=== PATIENT | male | born 1945 | race Caucasian/White ===

== ENCOUNTER 2016-11-10 08:08 | Emergency (ER) | payer MEDICARE, OTHER ==
[2016-11-10 08:14] VITALS: BP 144/70; PULSE 67; RESP 18; TEMP 97.1
[2016-11-10] MEDS ORDERED: KETOROLAC 60 MG/2 ML VIAL IM STA (08:20)
[2016-11-10] MEDS ORDERED: methylPREDNISolone SOD SUCCI 125 MG/2 ML VIAL IM STA (08:20)
[2016-11-10] MEDS ORDERED: ORPHENADRINE 30 MG/ML 2 ML VIAL IM STA (08:20)
--- NOTE | 2016-11-10 08:31 | ED ---
General Adult HPI - General Chief complaint: Extremity Problem,Nontraumatic Stated complaint: LEFT LEG PAIN FROM HIP DOWN Time Seen by Provider: 11/10/16 08:16 Source: patient, RN notes reviewed Mode of arrival: ambulatory Limitations: no limitations - History of Present Illness Initial comments: 71-year-old male presents emergency Department chief complaint of left-sided hip pain. Patient states a few days ago he fell back onto the right hip. Patient states ever since the fall he's had this pain to the left hip that radiates down the left leg with a burning type quality. Patient states it painful to walk. Patient states he's had no loss of bowel or bladder function. Patient denies any history of pain like this before. Patient states that it started after the fall. Patient states that it doesn't hurt to touch but just hurts. Patient states her movements will make it worse. Patient states he did not hit his head with the fall was a simple. It bothers no chest pain no tenderness or dizziness prior to the fall. Patient states she was concerned due to his pain. That he should be seenPatient denies any recent fever, chills , shortness of breath, chest pain, abdominal pain, nausea vomiting, numbness or tingling, dysuria or hematuria, constipation or diarrhea, headaches or visual changes, or any other current symptoms. - Related Data Home Medications Medication Instructions Recorded Confirmed Acetaminophen [Tylenol Extra 500 mg PO TID 11/10/16 11/10/16 Strength] Alendronate Sodium [Fosamax] 40 mg PO SA 11/10/16 11/10/16 Clopidogrel Bisulfate [Plavix] 75 mg PO DAILY 11/10/16 11/10/16 Levothyroxine Sodium [Synthroid] 75 mcg PO DAILY 11/10/16 11/10/16 Metoprolol Succinate [Toprol XL] 25 mg PO DAILY 11/10/16 11/10/16 Multivitamins, Thera [Multivitamin 1 tab PO DAILY 11/10/16 11/10/16 (formulary)] glipiZIDE [Glucotrol] 5 mg PO AC-BID 11/10/16 11/10/16 metFORMIN HCL [Glucophage] 500 mg PO BID 11/10/16 11/10/16 Previous Rx's Medication Instructions Recorded predniSONE 50 mg PO DAILY #5 tab 11/10/16 Allergies Allergy/AdvReac Type Severity Reaction Status Date / Time aspirin Allergy Unknown Verified 11/10/16 08:49 Penicillins Allergy Unknown Verified 11/10/16 08:49 vancomycin Allergy Rapid Verified 11/10/16 08:49 Heart Rate Review of Systems ROS Statement: Those systems with pertinent positive or pertinent negative responses have been documented in the HPI. ROS Other: All systems not noted in ROS Statement are negative. Past Medical History Past Medical History: Diabetes Mellitus, Hyperlipidemia, Thyroid Disorder Additional Past Medical History / Comment(s): osteoporosis diverticulitis History of Any Multi-Drug Resistant Organisms: None Reported Additional Past Surgical History / Comment(s): bowel surg schrapnal removal cataracts Past Psychological History: No Psychological Hx Reported Smoking Status: Never smoker Past Alcohol Use History: None Reported Past Drug Use History: None Reported General Exam Limitations: no limitations General appearance: alert, in no apparent distress ENT exam: Present: normal exam, mucous membranes moist Neck exam: Present: normal inspection. Absent: tenderness, meningismus, lymphadenopathy Respiratory exam: Present: normal lung sounds bilaterally. Absent: respiratory distress, wheezes, rales, rhonchi, stridor Cardiovascular Exam: Present: regular rate, normal rhythm, normal heart sounds. Absent: systolic murmur, diastolic murmur, rubs, gallop, clicks Extremities exam: Present: normal inspection, full ROM, normal capillary refill. Absent: tenderness, pedal edema, joint swelling, calf tenderness Back exam: Present: normal inspection, full ROM, other (Positive straight leg raise on the left ). Absent: tenderness, CVA tenderness (R), CVA tenderness (L) , muscle spasm, paraspinal tenderness, vertebral tenderness, rash noted Neurological exam: Present: alert, oriented X3 Psychiatric exam: Present: normal affect, normal mood Skin exam: Present: warm, dry, intact, normal color. Absent: rash Course Vital Signs 11/10/16 08:09 Temperature 97.1 F L Pulse Rate 67 Respiratory 18 Rate Blood Pressure 144/70 O2 Sat by Pulse 98 Oximetry Medical Decision Making - Medical Decision Making 71-year-old male presents emergency Department with chief complaint of burning pain down the left leg. This time x-ray results were reviewed and discussed with the patient. This time we discussed patient's symptoms are consistent with sciatica. We did discuss was struck on steroids. We did discuss that this can increase his glucose did discuss close follow-up this. We did discuss close follow-up with his doctor return parameters. Patient stated he understood all questions have been answered. He will be discharged home. - Radiology Data Radiology results: report reviewed, image reviewed Disposition Clinical Impression: Left sided sciatica Disposition: HOME SELF-CARE Condition: Stable Instructions: Sciatica (ED) Additional Instructions: Please use medication as discussed. Please follow up with family doctor if symptoms have not improved over the next two days. Please return to the emergency room if your symptoms increase or worsen or for any other concerns. Prescriptions: predniSONE 50 mg PO DAILY #5 tab Referrals: Davy Ahumada MD [Primary Care Provider] - 1-2 days Time of Disposition: 09:08
--- NOTE | 2016-11-10 08:43 | XR ---
EXAMINATION TYPE: XR lumbar spine 2 or 3V DATE OF EXAM: 11/10/2016 COMPARISON: NONE HISTORY: Pain low back and left hip TECHNIQUE: Three-view lumbar spine FINDINGS: There 5 lumbar-type vertebral bodies. The pedicles are intact. Posterior disc space narrowi ng is present to the lumbar spine. Vertebral body heights are preserved. Postsurgical changes are wit hin the pelvis. Calcific density overlies the right flank. IMPRESSION: 1. Degenerative disc changes lumbar spine
--- NOTE | 2016-11-10 08:44 | XR ---
EXAMINATION TYPE: XR Hip LT and AP Pelvis DATE OF EXAM: 11/10/2016 COMPARISON: NONE HISTORY: Left hip pain low back pain TECHNIQUE: AP pelvis and two-view left hip FINDINGS: Femoral heads articulate with the acetabulum. Symphysis pubis and sacroiliac joints are nor mal. Normal bowel gas is present. Postsurgical changes are within the pelvis. Close bowel surgical ch anges are evident. No acute fracture of the left hip is evident. IMPRESSION: 1. Normal left hip
== END 2016-11-10 09:08 | disposition home or self-care (01) ==
LOC: EC 08:08
DX: M54.32 Sciatica, left side (principal); E11.9 Type 2 diabetes mellitus without complications; M81.0 Age-related osteoporosis without current pathological fracture; E07.9 Disorder of thyroid, unspecified; Z79.02 Long term (current) use of antithrombotics/antiplatelets; Z79.84 Long term (current) use of oral hypoglycemic drugs; Z79.899 Other long term (current) drug therapy; Z88.0 Allergy status to penicillin; Z88.1 Allergy status to other antibiotic agents; Z88.6 Allergy status to analgesic agent
CPT/HCPCS: 72100; 73502; 99283; 96372 ×3; J2360; J2930; J1885

== ENCOUNTER 2018-03-15 18:41 | Emergency (ER) | payer MEDICARE, OTHER ==
[2018-03-15 18:49] VITALS: RESP 18
[2018-03-15] MEDS ORDERED: KETOROLAC 30 MG/ML 1 ML VIAL IM STA (19:41)
[2018-03-15] MEDS ORDERED: MORPHINE SULFATE 4 MG/ML SYRINGE IM STA (20:17)
--- NOTE | 2018-03-15 20:36 | CT ---
EXAMINATION TYPE: CT lumbar spine wo con DATE OF EXAM: 03/15/2018 8:14 PM COMPARISON: HISTORY: low back pain, no injury CT DLP: 686.1 mGycm Automated exposure control for dose reduction was used. Unenhanced CT of the lumbar spine was performed. Bone and soft tissue window settings are submitted as well as coronal and sagittal reconstructions. Lumbar vertebra have fairly normal spacing and alignment. There is no compression fracture. Posterior elements are intact. I see no evidence of bony spinal stenosis. There is no lumbar paraspinal mass. I see no focal bone destruction. Sacroiliac joints appear intact. IMPRESSION: No significant abnormality of the lumbar spine. No fracture. No spinal stenosis.
--- NOTE | 2018-03-15 20:42 | CT ---
EXAMINATION TYPE: CT hip LT wo con DATE OF EXAM: 03/15/2018 COMPARISON: None HISTORY: left hip pain, no injury CT DLP: 387.6 mGycm Automated exposure control for dose reduction was used. FINDINGS: Multiple axial sections were obtained from the mid ileum to the mid shaft of the femur with no contra st. Hip joint spaces fairly normal. There is no evidence of femoral fracture. Acetabulum appears intact. Sacroiliac joint appears intact. I see no focal bone destruction. There is soft tissue calcification posterior to the proximal shaft of the femur consistent with old injury. There is no evidence of a so ft tissue mass. IMPRESSION: NEGATIVE CT SCAN OF THE LEFT HIP. NO EVIDENCE OF ANY SIGNIFICANT ARTHRITIC DISEASE. NO FRACTURE.
--- NOTE | 2018-03-15 21:13 | ED ---
General Adult HPI - General Source: patient, RN notes reviewed Mode of arrival: ambulatory Limitations: no limitations <Truong Pena P - Last Filed: 03/15/18 21:40> <Lizz Ventura P - Last Filed: 03/16/18 04:43> - General Chief complaint: Extremity Injury, Lower Stated complaint: sciatica nerve pain Time Seen by Provider: 03/15/18 18:54 - History of Present Illness Initial comments: 72-year-old male presents to the emergency department for a chief complaint of left buttock pain 2 days. Patient states this feels that his previous sciatic pain. Patient states that he is able to ambulate but has pain with sitting. Patient states he has been taking Tylenol which helped somewhat with the pain. Patient denies any lumbar spine pain. He denies any bladder or bowel changes. He denies any weakness or numbness in the lower extremities. He denies any numbness of the groin or buttock. Denies any IV drug abuse, history of cancer, fevers, chronic steroid use. Patient is a diabetic. Patient has no other complaints at this time including shortness of breath, chest pain, abdominal pain, nausea or vomiting, headache, or visual changes. (Truong Pnea) - Related Data Home Medications Medication Instructions Recorded Confirmed Acetaminophen [Tylenol Extra 500 mg PO TID 11/10/16 11/10/16 Strength] Alendronate Sodium [Fosamax] 40 mg PO SA 11/10/16 11/10/16 Clopidogrel Bisulfate [Plavix] 75 mg PO DAILY 11/10/16 11/10/16 Levothyroxine Sodium [Synthroid] 75 mcg PO DAILY 11/10/16 11/10/16 Metoprolol Succinate [Toprol XL] 25 mg PO DAILY 11/10/16 11/10/16 Multivitamins, Thera [Multivitamin 1 tab PO DAILY 11/10/16 11/10/16 (formulary)] glipiZIDE [Glucotrol] 5 mg PO AC-BID 11/10/16 11/10/16 metFORMIN HCL [Glucophage] 500 mg PO BID 11/10/16 11/10/16 Previous Rx's Medication Instructions Recorded predniSONE 50 mg PO DAILY #5 tab 11/10/16 Allergies Allergy/AdvReac Type Severity Reaction Status Date / Time aspirin Allergy Unknown Verified 03/15/18 18:48 Penicillins Allergy Unknown Verified 03/15/18 18:48 vancomycin Allergy Rapid Verified 03/15/18 18:48 Heart Rate Review of Systems ROS Other: All systems not noted in ROS Statement are negative. <Truong Pena P - Last Filed: 03/15/18 21:40> ROS Other: All systems not noted in ROS Statement are negative. <Lizz Ventura P - Last Filed: 03/16/18 04:43> ROS Statement: Those systems with pertinent positive or pertinent negative responses have been documented in the HPI. Past Medical History Past Medical History: Diabetes Mellitus, Hyperlipidemia, Thyroid Disorder Additional Past Medical History / Comment(s): osteoporosis diverticulitis History of Any Multi-Drug Resistant Organisms: None Reported Additional Past Surgical History / Comment(s): bowel surg schrapnal removal cataracts Past Psychological History: No Psychological Hx Reported Smoking Status: Never smoker Past Alcohol Use History: None Reported Past Drug Use History: None Reported <Truong Pena P - Last Filed: 03/15/18 21:40> General Exam Limitations: no limitations General appearance: alert, in no apparent distress Head exam: Present: atraumatic, normocephalic, normal inspection Eye exam: Present: normal appearance, PERRL, EOMI. Absent: scleral icterus, conjunctival injection, periorbital swelling ENT exam: Present: normal exam, mucous membranes moist Neck exam: Present: normal inspection, full ROM. Absent: tenderness, meningismus, lymphadenopathy Respiratory exam: Present: normal lung sounds bilaterally. Absent: respiratory distress, wheezes, rales, rhonchi, stridor Cardiovascular Exam: Present: regular rate, normal rhythm, normal heart sounds. Absent: systolic murmur, diastolic murmur, rubs, gallop, clicks Extremities exam: Present: normal capillary refill (Capillary refill less than 2 seconds and DP pulse 2+.) Back exam: Present: other (Tenderness to the left buttock by the piriformis muscle.). Absent: vertebral tenderness (No lumbar spine tenderness.) Neurological exam: Present: alert, oriented X3, CN II-XII intact, normal gait ( Patient able to ambulate without difficulty) Psychiatric exam: Present: normal affect, normal mood <Truong Pena P - Last Filed: 03/15/18 21:40> Vital Signs 11/01/18 11/01/18 18:46 21:49 Temperature 98.3 F 97.6 F Pulse Rate 68 67 Respiratory 18 18 Rate Blood Pressure 125/67 124/74 O2 Sat by Pulse 100 97 Oximetry Medical Decision Making <Truong Pena P - Last Filed: 03/15/18 21:40> <Lizz Ventura P - Last Filed: 03/16/18 04:43> - Medical Decision Making 72-year-old male patient see emergency department for a chief complaint of pain to the left buttock. Patient states his pain is consistent with sciatica. He states he has had in the past. He describes this as a sharp pain in the left buttock worse with pressure. Patient states it is painful to sit. He states it feels better to stand or lay down. He is able to ambulate and has a normal gait in the emergency department. Patient does have tenderness to the left buttock over the piriformis muscle. No lumbar spine tenderness. He denies any injuries. CT lumbar spines shows no sign of abnormality, no fracture or spinal stenosis. CT hip is negative. No evidence of any significant arthritic disease. No fracture. Patient was given 2 of morphine which did help with his pain. I did offer to give him pain medications for home which she refuses. He states he will continue with Tylenol and follow up with primary care. I did discuss returning if he has any worsening symptoms or feels as if he may fall from the pain and he agrees to do this. He states as of now he is able to ambulate at home without problem. He will follow up with primary care in 1-2 days. (Truong Pena) I was available for consultation in the emergency department. The history and physical exam were done by the midlevel provider. I was consulted for this patient's care. I reviewed the case with the midlevel provider and based on their presentation of the patient, I agree with the assessment, medical decision making and plan of care as documented. (Lizz Ventura) Disposition Is patient prescribed a controlled substance at d/c from ED?: No Time of Disposition: 21:39 <Truong Pena P - Last Filed: 03/15/18 21:40> <Lizz Ventura P - Last Filed: 03/16/18 04:43> Clinical Impression: Back pain Disposition: HOME SELF-CARE Condition: Good Instructions: Lumbar Radiculopathy (ED) Additional Instructions: Please continue to take Tylenol as directed. Please follow-up with primary care in 1-2 days. Return to the emergency department if you have any worsening symptoms. Referrals: Davy Ahumada MD [Primary Care Provider] - 1-2 days
[2018-03-15 21:50] VITALS: BP 124/74; PULSE 67; TEMP 97.6
== END 2018-03-15 21:49 | disposition home or self-care (01) ==
LOC: EC 18:41
DX: M54.9 Dorsalgia, unspecified (principal); M54.32 Sciatica, left side; E11.9 Type 2 diabetes mellitus without complications; E07.9 Disorder of thyroid, unspecified; M81.0 Age-related osteoporosis without current pathological fracture; Z79.02 Long term (current) use of antithrombotics/antiplatelets; Z79.84 Long term (current) use of oral hypoglycemic drugs; Z79.899 Other long term (current) drug therapy; Z88.6 Allergy status to analgesic agent; Z88.0 Allergy status to penicillin; Z88.1 Allergy status to other antibiotic agents; Z53.29 Procedure and treatment not carried out because of patient's decision for other reasons
CPT/HCPCS: 72131; 73700; 99284; 96372; J2270

== ENCOUNTER 2024-10-28 15:14 | Emergency (ER) | payer BC, MEDICARE ==
[2024-10-28 15:54] VITALS: TEMP 98
--- NOTE | 2024-10-28 16:16 | ED ---
General Adult HPI - General Chief complaint: Altered Mental Status Stated complaint: Petition Time Seen by Provider: 10/28/24 15:16 Source: patient, family, EMS, RN notes reviewed Mode of arrival: EMS Limitations: no limitations - History of Present Illness Initial comments: Patient is an 79-year-old male present to the emergency department with concerns with progressive dementia. Patient has been more agitated at times. Patient today struck his head on a pole. Son did notice a bump on the side of his head. Patient had a similar episode a couple months ago. Patient has also struck his head with his hand several times. Son believes this is because he is frustrated because he is not thinking clearly. Patient specifically has no complaints. - Related Data Home Medications Medication Instructions Recorded Confirmed glipiZIDE [Glucotrol] 5 mg PO DAILY 11/10/16 10/28/24 Calcium Carbonate 1,000 mg PO DAILY 10/28/24 10/28/24 Cholecalciferol (Vitamin D3) 50 mcg PO DAILY 10/28/24 10/28/24 [Vitamin D3 (50 Mcg = 2000 Iu)] Donepezil [Aricept] 10 mg PO DAILY 10/28/24 10/28/24 Levothyroxine Sodium [Synthroid] 25 mcg PO DAILY 10/28/24 10/28/24 metFORMIN HCL ER [Glucophage XR] 1,000 mg PO DAILY 10/28/24 10/28/24 Previous Rx's Medication Instructions Recorded hydrOXYzine pamoate [Vistaril] 25 mg PO TID PRN #20 cap 10/28/24 Allergies Allergy/AdvReac Type Severity Reaction Status Date / Time aspirin Allergy Unknown Verified 10/28/24 18:50 Penicillins Allergy "knocked Verified 10/28/24 18:50 him out" vancomycin Allergy Rapid Verified 10/28/24 18:50 Heart Rate Review of Systems ROS Statement: Those systems with pertinent positive or pertinent negative responses have been documented in the HPI. ROS Other: All systems not noted in ROS Statement are negative. Constitutional: Denies: fever Eyes: Denies: eye pain ENT: Denies: ear pain Respiratory: Denies: cough Cardiovascular: Denies: chest pain Endocrine: Denies: fatigue Gastrointestinal: Denies: abdominal pain Neurological: Denies: headache Psychiatric: Reports: as per HPI Past Medical History Past Medical History: Diabetes Mellitus, Hyperlipidemia, Thyroid Disorder Additional Past Medical History / Comment(s): osteoporosis diverticulitis History of Any Multi-Drug Resistant Organisms: None Reported Additional Past Surgical History / Comment(s): bowel surg schrapnal removal cataracts Past Psychological History: No Psychological Hx Reported Past Alcohol Use History: None Reported Past Drug Use History: None Reported General Exam Limitations: no limitations General appearance: alert, in no apparent distress Head exam: Present: other (Mild soft tissue swelling left temporal) Eye exam: Present: normal appearance, PERRL, EOMI Neck exam: Present: normal inspection Respiratory exam: Present: normal lung sounds bilaterally Cardiovascular Exam: Present: regular rate, normal rhythm GI/Abdominal exam: Present: soft. Absent: tenderness Extremities exam: Present: normal inspection. Absent: pedal edema, calf tendern ess Neurological exam: Present: alert, CN II-XII intact. Absent: motor sensory deficit Expanded Neurological exam: Present: protecting the airway Patient oriented to: Present: person. Absent: place, time Speech: Present: fluid speech Cranial nerves: EOM's Intact: Normal Motor strength exam: RUE: 5, LUE: 5, RLE: 5, LLE: 5 Eye Response: (4) open spontaneously Motor Response: (6) obeys commands Verbal Response: (4) confused conversation Psychiatric exam: Present: normal affect, normal mood Skin exam: Present: normal color Course Vital Signs 10/28/24 10/28/24 10/28/24 15:32 17:43 18:50 Temperature 98.0 F Pulse Rate 67 60 Respiratory 18 16 17 Rate Blood Pressure 114/68 134/76 O2 Sat by Pulse 98 97 Oximetry EKG Findings - EKG Results: EKG: interpreted by ERMD (First-degree AV block with a WA of 211), sinus rhythm, normal axis, normal QRS, normal ST/T EKG shows: bradycardia Medical Decision Making - Medical Decision Making Was pt. sent in by a medical professional or institution (, PA, BASEBALL HAND SEWER, urgent care, hospital, or penitentiary...) When possible be specific @ -No Did you speak to anyone other than the patient for history (EMS, parent, family, police, friend...)? What history was obtained from this source @ -Son is present and provides majority of history and concerns that he has for his father Did you review nursing and triage notes (agree or disagree)? Why? @ -I reviewed and agree with nursing and triage notes Were old charts reviewed (outside hosp., previous admission, EMS record, old EKG, old radiological studies, urgent care reports/EKG's, penitentiary records)? Report findings @ -No old charts were reviewed Differential Diagnosis (chest pain, altered mental status, abdominal pain women, abdominal pain men, vaginal bleeding, weakness, fever, dyspnea, syncope, headache, dizziness, GI bleed, back pain, seizure, CVA, palpatations, mental health, musculoskeletal)? @ -Differential Mental Health Depression, anxiety, bipolar, psychosis, schizophrenia, borderline personality, situational depression, adjustment disorder, behavioral disorder, brain tumor, malingering, substance abuse, encephalopathy, medication reaction, dementia, hypothyroidism, degenerative neurologic disorder, lupus.... This is not meant to be all-inclusive list EKG interpreted by me (3pts min.). @ -As above X-rays interpreted by me (1pt min.). @ -Chest x-ray shows no acute abnormality. X-ray of the wrist without evidence of acute fracture. CT interpreted by me (1pt min.). @ -CT scan of the brain without acute abnormality U/S interpreted by me (1pt. min.). @ -None done What testing was considered but not performed or refused? (CT, X-rays, U/S, labs)? Why? @ -None What meds were considered but not given or refused? Why? @ -None Did you discuss the management of the patient with other professionals (professionals i.e. , PA, BASEBALL HAND SEWER, lab, RT, psych nurse, social services counselor, tool grinder, teacher, sports development officer, outsole caser)? Give summary @ -Case was discussed with psychiatric nurse with plans for discharge. They did safety plan with patient. Was smoking cessation discussed for >3mins.? @ -No Was critical care preformed (if so, how long)? @ -No Were there social determinants of health that impacted care today? How? (Homelessness, low income, unemployed, alcoholism, drug addiction, transportation, low edu. Level, literacy, decrease access to med. care, group home, rehab)? @ -No Was there de-escalation of care discussed even if they declined (Discuss DNR or withdrawal of care, Hospice)? DNR status @ -No What co-morbidities impacted this encounter? (DM, HTN, Smoking, COPD, CAD, Cancer, CVA, ARF, Chemo, Hep., AIDS, mental health diagnosis, sleep apnea, morbid obesity)? @ -History of dementia Was patient admitted / discharged? Hospital course, mention meds given and rou te, prescriptions, significant lab abnormalities, going to OR and other pertinent info. @ -Patient presents with history of dementia with worsening symptoms and some agitation. Evaluation unremarkable. Patient seen by mental health services with plan for discharge. Undiagnosed new problem with uncertain prognosis? @ -No Drug Therapy requiring intensive monitoring for toxicity (Heparin, Nitro, Insulin, Cardizem)? @ -No Were any procedures done? @ -No Diagnosis/symptom? @ -Agitation Acute, or Chronic, or Acute on Chronic? @ -Acute on chronic Uncomplicated (without systemic symptoms) or Complicated (systemic symptoms)? @ -Default Side effects of treatment? @ -No Exacerbation, Progression, or Severe Exacerbation? @ -No Poses a threat to life or bodily function? How? (Chest pain, [place], [place], pneumonia, PE, COPD, DKA, ARF, appy, cholecystitis, CVA, Diverticulitis, Homicidal, Suicidal, threat to staff... and all critical care pts) @ -No - Lab Data Result diagrams: 10/28/24 16:07 10/28/24 16:07 Lab Results 10/28/24 10/28/24 10/28/24 Range/Units 16:07 16:07 18:23 WBC 6.46 (4.50-10.00) 10*3/uL RBC 4.22 L (4.40-5.60) 10*6/uL Hgb 13.0 (13.0-17.0) g/dL Hct 39.3 L (39.6-50.0) % MCV 93.1 (80.0-97.0) fL MCH 30.8 (27.0-32.0) pg MCHC 33.1 (32.0-37.0) g/dL Plt Count 204 (140-440) 10*3/uL MPV 11.0 (9.5-12.2) fL Immature Gran % (Auto) 0.2 % Neutrophils % 57.5 % Lymphocytes % 29.4 % Monocytes % 10.4 % Eosinophils % 1.7 % Basophils % 0.8 % Immature Gran # 0.01 (0.00-0.04) 10*3/uL Neutrophils # 3.72 (1.80-7.70) 10*3/uL Lymphocytes # 1.90 (0.90-5.00) 10*3/uL Monocytes # 0.67 (0.20-1.00) 10*3/uL Eosinophils # 0.11 (0.04-0.35) 10*3/uL Basophils # 0.05 (0.00-0.10) 10*3/uL Sodium 142 (137-145) mmol/L Potassium 4.0 (3.5-5.1) mmol/L Chloride 107 (98-107) mmol/L Carbon Dioxide 27 (22-30) mmol/L Anion Gap 8 mmol/L BUN 17 (9-20) mg/dL Creatinine 0.62 L (0.66-1.25) mg/dL Est GFR (CKD-EPI)AfAm >90 (>60 ml/min/1.73 sqM) Est GFR (CKD-EPI)NonAf >90 (>60 ml/min/1.73 sqM) Glucose 111 H (74-99) mg/dL Calcium 9.4 (8.4-10.2) mg/dL Total Bilirubin 0.4 (0.2-1.3) mg/dL AST 30 (17-59) U/L ALT 12 (4-49) U/L Alkaline Phosphatase 98 (38-126) U/L Total Protein 6.9 (6.3-8.2) g/dL Albumin 4.2 (3.5-5.0) g/dL Urine Color Light Yellow Urine Appearance Clear (Clear) Urine pH 7.0 (5.0-8.0) Ur Specific [place] 1.022 (1.001-1.035) Urine Protein Negative (Negative) Urine Glucose (UA) Negative (Negative) Urine Ketones Negative (Negative) Urine Blood Negative (Negative) Urine Nitrite Negative (Negative) Urine Bilirubin Negative (Negative) Urine Urobilinogen <2.0 (<2.0) mg/dL Ur Leukocyte Esterase Negative (Negative) Urine Opiates Screen Not Detected (NotDetected) Ur Oxycodone Screen Not Detected (NotDetected) Urine Methadone Screen Not Detected (NotDetected) Ur Barbiturates Screen Not Detected (NotDetected) U Tricyclic Antidepress Not Detected (NotDetected) Ur Phencyclidine Scrn Not Detected (NotDetected) Ur Amphetamines Screen Not Detected (NotDetected) U Methamphetamines Scrn Not Detected (NotDetected) U Benzodiazepines Scrn Not Detected (NotDetected) Urine Cocaine Screen Not Detected (NotDetected) U Marijuana (THC) Screen Not Detected (NotDetected) Serum Alcohol <10 mg/dL Disposition Clinical Impression: Agitation Disposition: HOME SELF-CARE Condition: Stable Instructions (If sedation given, give patient instructions): Dementia (ED) Additional Instructions: Please do follow-up with your primary care physician in the next day or 2 for recheck. Return for worsening change in mental status, confusion, weakness, w orsening symptoms or other concerns. Prescription sent to pharmacy. Prescriptions: hydrOXYzine pamoate [Vistaril] 25 mg PO TID PRN #20 cap PRN Reason: Agitation Is patient prescribed a controlled substance at d/c from ED?: No Referrals: Samir Batres DO [Primary Care Provider] - 1-2 days Time of Disposition: 19:47
--- NOTE | 2024-10-28 16:37 | CT ---
EXAMINATION TYPE: CT brain wo con DATE OF EXAM: 10/28/2024 COMPARISON: None CLINICAL INDICATION: Male, 79 years old with history of trauma; PHH, hitting head against rails CT DLP: 1159.4 mGycm Automated exposure control for dose reduction was used. Findings: The ventricles, basal cisterns and sulci over convexities are moderately to markedly enlarged consist ent with moderate to marked generalized atrophy. There is mild decreased density in the periventricular white matter consistent with mild chronic isch emic white matter demyelination. 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 There is no mass effect or shift of midline structures. There is no acute intra or extra-axial hemorrhage. The intraorbital contents appear normal symmetric Visualized paranasal sinuses and mastoid air cells are well aerated. Calvarium is intact. IMPRESSION: 1. No acute bleed or mass effect. 2. Senescent changes as described above. [facility], , 10/28/2024 4:35 PM
--- NOTE | 2024-10-28 16:41 | XR ---
EXAMINATION TYPE: XR chest 2V DATE OF EXAM: 10/28/2024 4:35 PM COMPARISON: None. CLINICAL INDICATION: Male, 79 years old with history of ams; PHH TECHNIQUE: XR chest 2V Frontal and lateral views of the chest. FINDINGS: Lungs/Pleura: There is no evidence of pleural effusion, focal consolidation, or pneumothorax. Pulmonary vascularity: Unremarkable. Heart/mediastinum: Cardiomediastinal silhouette is unremarkable. Musculoskeletal: No acute osseous pathology. Other findings: None IMPRESSION: No acute cardiopulmonary disease/process. [facility], , 10/28/2024 4:39 PM
--- NOTE | 2024-10-28 16:43 | XR ---
EXAMINATION TYPE: XR wrist complete RT DATE OF EXAM: 10/28/2024 4:35 PM COMPARISON: None available. CLINICAL INDICATION: Male, 79 years old with history of pain; PHH, pain TECHNIQUE: XR wrist complete RT; examined in the Frontal, navicular, lateral, and oblique. FINDINGS: No acute fracture or dislocation. Vascular calcifications noted. Osseous structures appear demineralized. Carpal alignment appears grossly maintained. Radiopaque density in the dorsal subcutan eous tissues overlying the rest it is felt to most likely reflect sequelae of prior trauma. IMPRESSION: No acute osseous pathology. [facility], , 10/28/2024 4:41 PM
[2024-10-28 17:02] LABS: Basophils # (A) 0.05 10*3/uL (0.00-0.10); Basophils % (A) 0.8 %; Eosinophils # (A) 0.11 10*3/uL (0.04-0.35); Eosinophils % (A) 1.7 %; HCT 39.3 % (39.6-50.0); Lymphocytes % (A) 29.4 %; MCH 30.8 pg (27.0-32.0); MCHC 33.1 g/dL (32.0-37.0); MCV 93.1 fL (80.0-97.0); Monocytes # (A) 0.67 10*3/uL (0.20-1.00); Monocytes % (A) 10.4 %; Neutrophils # (A) 3.72 10*3/uL (1.80-7.70); Neutrophils % (A) 57.5 %; Platelet Count 204 10*3/uL (140-440); RBC 4.22 10*6/uL (4.40-5.60); RDW 12.5 % (11.5-14.5); WBC 6.46 10*3/uL (4.50-10.00)
[2024-10-28 17:37] LABS: ALT 12 U/L (4-49); AST 30 U/L (17-59); African American GFR (CKD) >90 (>60 ml/min/1.73 sqM); Albumin 4.2 g/dL (3.5-5.0); Alcohol <10 mg/dL; Alkaline Phosphatase 98 U/L (38-126); Anion Gap 8 mmol/L; Blood Urea Nitrogen 17 mg/dL (9-20); Calcium 9.4 mg/dL (8.4-10.2); Carbon Dioxide 27 mmol/L (22-30); Chloride 107 mmol/L (98-107); Glucose 111 mg/dL (74-99); Non-African American GFR(CKD) >90 (>60 ml/min/1.73 sqM); Sodium 142 mmol/L (137-145); Total Bilirubin 0.4 mg/dL (0.2-1.3); Total Protein 6.9 g/dL (6.3-8.2)
[2024-10-28 17:45] VITALS: BP 134/76; PULSE 60
[2024-10-28 18:38] LABS: Appearance,Urine Clear (Clear); Bilirubin,Urine Negative (Negative); Blood,Urine Negative (Negative); Color,Urine Light Yellow; Glucose,Urine (UA) Negative (Negative); Ketones,Urine Negative (Negative); Leukocyte Esterase,Urine Negative (Negative); Nitrite,Urine Negative (Negative); Protein,Urine Negative (Negative); Specific Gravity,Urine 1.022 (1.001-1.035); Urobilinogen,Urine <2.0 mg/dL (<2.0)
[2024-10-28 18:55] VITALS: RESP 17
[2024-10-28 19:01] LABS: Amphetamine Screen,Urine Not Detected (NotDetected); Barbiturate Screen,Urine Not Detected (NotDetected); Benzodiazepines Screen,Urine Not Detected (NotDetected); Cocaine Screen,Urine Not Detected (NotDetected); Methadone Screen, Urine Not Detected (NotDetected); Opiate Screen,Urine Not Detected (NotDetected); Oxycodone Screen, Urine Not Detected (NotDetected); Phencyclidine Screen,Urine Not Detected (NotDetected); Tricyclic Antidepressant,Urine Not Detected (NotDetected); Urn Cannabinoid Scrn Not Detected (NotDetected)
== END 2024-10-28 20:24 | disposition home or self-care (01) ==
LOC: EC 15:14 → EEVIPCON 15:14 → EC 20:24
DX: R45.1 Restlessness and agitation (principal); I44.0 Atrioventricular block, first degree; Z88.0 Allergy status to penicillin; Z88.6 Allergy status to analgesic agent
CPT/HCPCS: 82075; 36415; 80053; 85025; 81003; 80306; 73110; 71046; 70450; 99285; G0480; 80320